=== PATIENT | female | born 1935 | race Caucasian/White ===

== ENCOUNTER 2016-07-01 14:40 | Emergency (ER) | payer MEDICARE, OTHER ==
[~2016-07-01] VITALS: Ht 170.2 cm; Wt 68.2 kg
[~2016-07-01 14:40] MED LIST: ANAS1TAB7 PO; CALC-140 PO; CALC500T9 PO; CHOL100043 PO; CURCUMIN PO; ESCI5SOL4 PO; LEVO25TA5 PO; LOSA25TA21 PO; OMEG-15 PO; [UNRECOGNIZED DRUG - OTHER] PO; vitamin b complex
[2016-07-01 14:45] VITALS: BP 183/89; PULSE 74; RESP 16; O2SAT 74
--- NOTE | 2016-07-01 15:02 | ED.REPORT ---
HPI-Chest Pain 40 and Over Date of Service Jul 01, 2016 ED Provider: Lachelle Baker MD The patient is an 81 year old female with history of breast cancer who presents to the emergency department complaining of left-sided chest pain that has been intermittent over the last few days. The first episode was within the last 4-5 days. She has had about 1 episode per day, lasting a few minutes at a time. She describes the pain as heaviness. Today the pain radiated down her left arm. Her pain has been constant for the last hour. She took aspirin prior to arrival. She was recently taken off Herceptin due to an EF of 40%. She has an upcoming appointment with Dr. Rodriguez. She denies extremity swelling, shortness of breath, nausea, diaphoresis, lightheadedness or dizziness. Nursing Notes Stated Complaint: CHEST PAIN/PAIN DOWN ARM Chief Complaint: Chest Pain Nursing Notes Reviewed: Yes Allergies: Coded Allergies: Penicillins (Verified Allergy, Severe, hives, 11/06/15) lisinopril (Verified Allergy, Unknown, dizziness, 11/06/15) Scheduled ([Curcumin]) 1 TAB PO DAILY ([Icarnin]) 1 TAB PO DAILY ([vitamin b complex]) 1 TAB DAILY Anastrozole (Anastrozole) 1 Mg Tablet 1 MG PO DAILY Calcium Carbonate/Vitamin D3 (Calcium + Vitamin D Tablet) 1 Each Tablet 1 EACH PO DAILY Cholecalciferol (Vitamin D3) (Vitamin D) 1,000 Unit Tablet 1,000 UNIT PO DAILY Escitalopram Oxalate (Escitalopram Oxalate) 5 Mg/5 Ml Solution 5 MG PO DAILY Levothyroxine (Levothyroxine) 25 Mcg Tablet 25 MCG PO DAILY Losartan Potassium (Losartan Potassium) 25 Mg Tablet 50 MG PO DAILY [place]-3/Dha/Epa/Fish Oil (Fish Oil 1,400 mg Softgel) 1 Each Capsule.dr 1 EACH PO DAILY Scheduled PRN Calcium Carbonate (Tums) 500 Mg Tab.chew 500 MG PO PRN PRN PRN HEART BURN General Time Seen by MD: 14:58 Chief Complaint Chest pain Hx Obtained From: Patient, Spouse, Daughter Arrived By: Walk-in Sudden in Onset?: Yes Onset Occurred: 4 days ago Symptom Duration: Intermittent Past Medical History Past Medical History Notes: Oncologist: Dr. Cline Investigations Director: Jennifer Past Medical History Breast Cancer but otherwise healthy Past Surgical History Lumpectomy Family History Noncontributory Smoking History Never Smoker Social History Alcohol Use: Denies alcohol use Drug Use: Denies drug use Other Social History: Good social support, Local resident Ambulatory Status Independent Review of Systems Constitutional: Denies: Chills, Fever Respiratory: Denies: Non-productive cough, Shortness of breath Cardiovascular: Reports: Chest pain GI: Denies: Abdominal pain, Nausea Musculoskeletal: Reports: Extremity pain, Denies: Extremity swelling Skin: Denies Diaphoresis Neurologic: Denies: Dizziness, Lightheaded Complete sys rev & neg: except as marked. Physical Exam Initial Vital Signs Vital Signs (First) Date Time Temp Pulse Resp B/P Pulse Ox O2 Delivery O2 Flow Rate FiO2 07/01/16 14:45 36.3 74 16 183/89 74 Room Air Initial VS: Reviewed Head / Eyes: Atraumatic, Normocephalic, PERRL ENT: Mucous membranes moist, Conjunctiva normal, No scleral icterus Neck: Supple, Non-tender, Full range of motion Lymphatic: No lymphadenopathy Extremities: Vascular intact, Neuro intact, No swelling, No tenderness Skin: Warm, Dry, No cyanosis Neurologic: Alert, Oriented, Nonfocal Psychiatric: Mood/affect normal, Behavior normal, Normal thought content General/Constitutional: Awake, Alert, No acute distress, Well appearing Respiratory / Chest: Atraumatic, Breath sounds NL, Breath sounds = bilat, No respiratory distress, No rales, No rhonchi, No wheezing, No stridor, No chest tenderness Cardiovascular: Heart rate NL, Regular rhythm, Heart sounds NL, No murmurs, No rubs, Peripheral circulation NL, Pulses = bilaterally, No gross BP differential Abdomen: Soft, Non-tender, McBurney's non-tender, No guarding, No rebound, BS normoactive, No distention, No hernia, No palpable mass Interpretation & Diagnostics Lab Results Interpretation Result Diagram: 07/01/16 1526 07/01/16 1526 Test 07/01/16 15:26 07/01/16 17:17 White Blood Count 5.0th/mm3 (3.8-10.1) Red Blood Count 4.63mil/mm3 (3.90-5.20) Hemoglobin 13.6g/dL (12.0-15.6) Hematocrit 40.1% (35.0-46.0) Mean Corpuscular Volume 86.6fL (81-100) Mean Corpuscular Hemoglobin 29.4pg (27.0-35.0) Mean Corpuscular Hemoglobin Concent 33.9% (32.0-37.0) Red Cell Distribution Width 13.1% (12.3-15.4) Platelet Count 187bil/L (150-400) Neutrophils (%) (Auto) 65.8% (40-74) Lymphocytes (%) (Auto) 21.2% (14-46) Monocytes (%) (Auto) 9.2% (4-12) Eosinophils (%) (Auto) 3.2% (0-5) Basophils (%) (Auto) 0.4% (0-3) Prothrombin Time 10.4sec (8.1-12.5) Prothromb Time International Ratio 0.97ratio Sodium Level 141mEq/L (134-144) Potassium Level 4.3mEq/L (3.5-5.2) Chloride Level 105mEq/L (97-108) Carbon Dioxide Level 23mmol/L (18-29) Blood Urea Nitrogen 18mg/dL (8-27) Creatinine 0.86mg/dL (0.57-1.00) Estimat Glomerular Filtration Rate 91mL/min (>59) Glucose Level 118mg/dL (60-99) Calcium Level 8.7mg/dL (8.5-10.1) Magnesium Level 2.1mg/dL (1.6-2.6) Total Bilirubin 0.3mg/dL (0.0-1.2) Aspartate Amino Transf (AST/SGOT) 22U/L (0-50) Alanine Aminotransferase (ALT/SGPT) 17U/L (0-32) Alkaline Phosphatase 72U/L (25-165) Pro-B-Type Natriuretic Peptide 1088pg/mL (0-738) Total Protein 6.7g/dL (6.4-8.4) Albumin 3.8g/dL (3.4-5.0) Hold Carlos Top Tube Received (Received) Troponin T < 0.010ug/L (0.0-0.011) ECG Interpretation ECG Interpretation: Sinus rhythm Minimal lead III ST elevation and lateral inverted T waves are unchanged from 10/27/2015 Time: 15:01 Interpreted by: ED physician X-Ray Chest Interpretation Chest Xray Interpretation: IMPRESSION: No acute cardiopulmonary disease process. Dictated by: Cheryl Stephens MD, PhD on 07/01/2016 at 15:36 Interpretation / Wet Read by: Interpret - Radiologist Re-Eval/Medical Decision Source of Hx: Old records, Family Time of Eval: 16:30 Re-Evaluation/Progress Note: Rechecked and updated the patient. Labs, chest x-ray are reassuring. Her pain is completely resolved. Will repeat troponin at 1730. Time of Eval: 19:12 Re-Evaluation/Progress Note: Rechecked the patient. Discussed lab results, diagnosis, and plan for discharge. All questions were addressed. Counseled Regarding: Diagnosis, Lab results, Need for follow-up, When/why to return to ED Discharge & Departure Primary Impression: Non-cardiac chest pain Disposition: Home Discharge Condition All VS Reviewed: Yes Condition: Stable Patient Instructions: Chest Pain (ED) Additional Instructions: Thank you for entrusting us with your care today. Your workup today is reassuring. There is no evidence of a heart attack, blood clot, pneumonia, or pneumothorax. Continue taking your medication as previously prescribed. Next time you can try taking Tylenol for the pain. It is okay to exercise and go about your daily tasks normally. Keep your upcoming appointment with Dr. Rodriguez. He may want to order additional outpatient testing. You can also call your regular doctor on Monday to schedule an appointment with her. Please return to the emergency department for any new or concerning symptoms, specifically: shortness of breath, diaphoresis, nausea, vomiting, lightheadedness or dizziness. Referrals: Cathy Serna MD (PCP) Rudolph Roth MD, Duncan T MD Scribe Attestation Portions of this note were transcribed by Jessi Benavidez. I, Dr. Baker personally performed the history, physical exam and medical decision-making; I reviewed and confirmed the accuracy of the information in the transcribed note. Signed by:Matthew Hoover, 07/01/2016 and 1920. copies to: Cathy Serna MD; Rudolph Roth MD; Parker Rodriguez MD, Shawna L MD Jul 01, 2016 15:02 Pramod,Jessi Kim Jul 01, 2016 15:13
[2016-07-01 15:37] LABS: BASOPHILS % (AUTO) 0.4 % (0-3); EOSINOPHILS % (AUTO) 3.2 % (0-5); MONOCYTES % (AUTO) 9.2 % (4-12); Mean Corpuscular Hemoglobin 29.4 pg (27.0-35.0); Mean Corpuscular Volume 86.6 fL (81-100); NEUTROPHILS % (AUTO) 65.8 % (40-74); Platelet Count 187 bil/L (150-400)
--- NOTE | 2016-07-01 15:38 | DRSVH ---
PROCEDURE: X-RAY CHEST ONE VIEW, PORTABLE ([id number]) INDICATIONS: cp TECHNIQUE: One view of the chest was acquired. COMPARISON: [facility], [place], XR CHEST 1VW (PORTABLE), 11/06/2015, 11:26. FINDINGS: Surgical changes and devices: Left chest Port-A-Cath is stable in appearance. Tip of Port-A-Cath proj ects in the distal SVC. Right breast surgical clips are stable. Lungs and pleura: No pleural effusions or pneumothorax. Lungs are clear. Mediastinum: Mediastinal contours appear normal. Heart size is normal. Bones and chest wall: S-shaped thoracic spine scoliosis is stable. No suspicious bony lesions. Over lying soft tissues appear unremarkable. IMPRESSION: No acute cardiopulmonary disease process. Dictated by: Cheryl Stephens MD, PhD on 07/01/2016 at 15:36 Approved by: Cheryl Stephens MD, PhD on 07/01/2016 at 15:36
[2016-07-01 15:48] LABS: INR 0.97 ratio
[2016-07-01 15:57] VITALS: BP 157/86; PULSE 63; RESP 16; O2SAT 94
[2016-07-01 16:06] LABS: Magnesium 2.1 mg/dL (1.6-2.6)
[2016-07-01 16:14] LABS: TROPONIN T < 0.010 ug/L (0.0-0.011)
[2016-07-01 19:50] VITALS: BP 162/74; PULSE 63; RESP 18; O2SAT 95
[2016-08-31] MEDS ORDERED: HYG25 PO (10:29)
== END 2016-07-01 19:50 | disposition home or self-care (01) ==
LOC: SED 14:40
DX: R07.9 Chest pain, unspecified (principal); Z85.3 Personal history of malignant neoplasm of breast; Z88.0 Allergy status to penicillin; Z88.8 Allergy status to other drugs, medicaments and biological substances